=== PATIENT | female | born 1950 | race Caucasian/White ===

== ENCOUNTER 2021-02-09 | Emergency (ER) | payer BC ==
[~2021-02-09] VITALS: Ht 160 cm; Wt 97.7 kg
[2021-02-09] MEDS ORDERED: IV NORMAL SALINE 1000ML BAG 1,000 ML IV ONE (01:15)
[2021-02-09] MEDS ORDERED: KETOROLAC 15 MG/ML VIAL. IVP ONE (01:15)
[2021-02-09] MEDS ORDERED: ORPHENADRINE CITRATE 60 MG/2 ML VIAL. IV ONE (01:15)
--- NOTE | 2021-02-09 01:22 | PHYS DOC ---
Past Medical History Past Medical History: Cancer, Diabetes-Type II Additional Past Medical Histor: Colon, anal, and breast cancer Past Surgical History: Other Additional Past Surgical Histo: breast reduction and liver surgery Smoking Status: Former Smoker Alcohol Use: Occasionally Drug Use: None General Adult EDM: Chief Complaint: MECHANICAL FALL HPI: HPI: Patient is a 71 year old female with past medical history of stage IV colon and anal cancer as well as breast cancer and diabetes on insulin presents today after a fall around 1130. Patient woke up and was having some leg cramps and was using her walker to walk down the hallway when she started to call for her . Patient does states she has a history of leg cramps and believes it may be due to dehydration. Patient lost balance and fell and her walker got in front of her. Patient said fall was directly related to cramps in her legs and some nausea. Patient is now having some left knee pain. Patient denies hitting her head but she does state that she did hit her neck and she is not on any blood thinners. does state that the patient did lose consciousness for about 1 minute in which she was nonresponsive. This happened when he sat her up against the wall. Patient does state that she had a a bowel movement on accident. She does state that this occurred in the emergency department and this is not normal for her. Patient denies any chest pain or shortness of breath. Patient denies any loss of sensation, vision changes or numbness or tingling. Patient states that she is not on any chemotherapy at this point for her cancer. She is following with [facility] and her doctor is apparently trying to get her into a clinical trial at this point. Review of Systems: Review of Systems: Constitutional: Denies fever or chills Eyes: Denies redness or eye pain HENT: Denies nasal congestion or sore throat Respiratory: Denies cough or shortness of breath Cardiovascular: Denies chest pain or palpitations GI: Denies abdominal pain, nausea, or vomiting : Denies dysuria or hematuria Musculoskeletal: Reports neck pain and left knee pain Integument: Denies rash or skin lesions Neurologic: Denies headache, focal weakness or sensory changes Complete systems were reviewed and found to be within normal limits, except as documented in this note. Heart Score: C/O Chest Pain: No Allergies: Allergies: Allergies Coded Allergies Type Severity Reaction Last Updated Verified No Known Drug Allergies 02/09/21 No Physical Exam: PE: Constitutional: Well developed, well nourished, no acute distress, non-toxic appearance HENT: Normocephalic, atraumatic Eyes: PERRL, EOMI, conjunctiva normal, no discharge Neck: Limited range of motion due to pain, no midline C-spine tenderness, no paraspinal tenderness, anterior neck pain noted Lungs & Thorax: No respiratory distress, equal chest rise and fall Abdomen: Soft, no tenderness; pelvis stable and nontender Skin: Warm, dry, no erythema, no rash abrasions noted on the forehead, chin, right hand, left knee Back: No tenderness, no CVA tenderness Extremities: left knee tenderness, ROM intact, negative anterior drawer sign, no edema Neurologic: Alert and oriented X 3, normal motor function, normal sensory function, no focal deficits noted, cranial nerves II through XII intact to testing Psychologic: Affect normal, judgment normal Current Patient Data: Vital Signs: Vital Signs Date Time Temp Pulse Resp B/P (MAP) Pulse Ox O2 Delivery O2 Flow Rate FiO2 02/09/21 00:00 98.6 66 18 136/66 (89) 99 Room Air 98.6 Radiology/Procedures: Radiology/Procedures: PROCEDURE: CT HEAD AND CERVICAL SPINE [facility] Compliance Statement: One or more of the following individualized dose reduction techniques were utilized for this examination: 1. Automated exposure control 2. Adjustment of the mA and/or kV according to patient size 3. Use of iterative reconstruction technique CT head and cervical spine without contrast 02/09/2021 1:26 AM INDICATION: Pain status post fall COMPARISON: None available TECHNIQUE: Multiple axial CT images of the head were obtained from skull base through the vertex without intravenous contrast. Multiple axial CT images of the cervical spine were obtained without intravenous contrast. Coronal and sagittal reformats are provided. FINDINGS: Head: Ventricles, sulci and basal cisterns are within normal limits. Density calcification identified within the globus pallidus and thalami. There is no hydrocephalus. Parmar-white matter differentiation is normal. There is no acute intracranial hemorrhage. There is no mass, mass effect or midline shift. Calcifications identified within the dentate nuclei. Visualized portions of the orbits are normal. Paranasal sinuses are well aerated. Mastoid air cells are well aerated. Scalp and calvaria are normal. Cervical spine: Alignment of the cervical spine is normal. Skull base is intact. Craniocervical junction is normal in appearance. Atlantoaxial articulation is normal. Vertebral body heights are maintained without evidence for acute fracture. There is calcification of the transverse ligament. Bridging anterior marginal osteophytosis noted with clefts identified at C3-C4 and C6-C7. At C3-C4, there is a central disc extrusion with mild facet arthropathy and mild uncovertebral joint disease resulting in moderate left and mild right neural foraminal stenosis and moderate spinal canal stenosis with at least mild deformity of the cord. Transverse foramen are intact. There is no prevertebral soft tissue swelling. Inferior right thyroid nodule measures 0.6 cm. Visualized portions of the lung apices are normal without evide nce for suspicious pulmonary nodule or infiltrate. IMPRESSION: 1. No acute intracranial hemorrhage. Dense calcifications identified within globus pallidus, thalami and dentate nuclei. Findings could reflect senescent changes versus changes associated with metabolic disorders such as hyperparathyroidism. 2. No acute fracture or malalignment of the cervical spine. [id number] cervical spondylosis. Findings result in moderate spinal canal stenosis at C3- C4. Electronically signed by: Rj Damon MD (02/09/2021 2:08 AM) [facility] PROCEDURE: KNEE LEFT 3V XR KNEE _3 VIEWS_LT 02/09/2021 1:26 AM INDICATION: Status post fall COMPARISON: None available. TECHNIQUE: 3 views of the left knee are provided. FINDINGS/ IMPRESSION: No significant knee joint effusion. There is no skin thickening along the suprapatellar region. Patellar enthesopathy noted. There is no acute fracture or dislocation. Mild femorotibial osteoarthrosis. Bone mineralization is within normal limits. Regional soft tissues are within normal limits. There is no soft tissue gas or osseous erosion. No radiopaque foreign body. Electronically signed by: Rj Damon MD (02/09/2021 2:09 AM) [facility] DICTATED and SIGNED BY: RJ DAMON MD DATE: 02/09/21 [id number] 0 Course & Med Decision Making: Course & Med Decision Making 71-year-old female patient with past medical history of stage IV colon and anal cancer and insulin-dependent diabetic presents today after mechanical fall that happened at 1130. Patient thinks the fall was due to the leg cramps which she a lso thinks is due to being slightly dehydrated. Patient does have some anterior neck tenderness and did have an episode of loss of consciousness that lasted about 1 minute according to the . Patient had no focal neurological deficits. CT head/cervical spine showed no acute abnormalities. Patient did have low potassium and I suspect that may be the cause for her muscle cramps. We will replete her potassium today orally and encourage a diet higher in potassium with adequate hydration. Patient also received intravenous fluids and medication to control her pain. Patient will be discharged with muscle relaxers as the patient already has opiates at home from her cancer treatment. Patient stable for discharge with outpatient follow-up with PCP. Discussed findings and plan with patient and spouse, who acknowledge understanding and agreement. Hemant Disclaimer: Hemant Disclaimer: This electronic medical record was generated, in whole or in part, using a voice recognition dictation system. Departure Departure Impression: Primary Impression: Fall Qualified Codes: W19.XXXA - Unspecified fall, initial encounter Additional Impressions: Contusion of neck Qualified Codes: S10.93XA - Contusion of unspecified part of neck, initial encounter Knee contusion Qualified Codes: S80.02XA - Contusion of left knee, initial encounter Hypokalemia Disposition: 01 HOME / SELF CARE / HOMELESS Condition: STABLE Patient Instructions: Contusion, [id number], Fall Prevention and Home Safety, [id number], Hypokalemia, Knee Wraps (Elastic Bandage) and RICE, Potassium Content of Foods Additional Instructions: Increase fluid hydration. ICE area of discomfort 20 min on then leave off next 20 mins. Repeat several times daily as needed for pain or discomfort. May use over the counter Tylenol and/or Ibuprofen and/or previously prescribed medications for pain or discomfort. Scripts Orphenadrine Citrate (ORPHENADRINE CITRATE) 100 Mg Tablet.er 100 MG PO BID PRN for MUSCLE PAIN, #14 TAB Prov: KIMMY SMITH DO 02/09/21 KIMMY SMITH DO Feb 09, 2021 01:22
--- NOTE | 2021-02-09 02:11 | RAD ---
[facility] Compliance Statement: One or more of the following individualized dose reduction techniques were utilized for this examinat ion: 1. Automated exposure control 2. Adjustment of the mA and/or kV according to patient size 3. Use of iterative reconstruction technique CT head and cervical spine without contrast 02/09/2021 1:26 AM INDICATION: Pain status post fall COMPARISON: None available TECHNIQUE: Multiple axial CT images of the head were obtained from skull base through the vertex with out intravenous contrast. Multiple axial CT images of the cervical spine were obtained without intrav enous contrast. Coronal and sagittal reformats are provided. FINDINGS: Head: Ventricles, sulci and basal cisterns are within normal limits. Density calcification identified withi n the globus pallidus and thalami. There is no hydrocephalus. Parmar-white matter differentiation is no rmal. There is no acute intracranial hemorrhage. There is no mass, mass effect or midline shift. Calc ifications identified within the dentate nuclei. Visualized portions of the orbits are normal. Paranasal sinuses are well aerated. Mastoid air cells a re well aerated. Scalp and calvaria are normal. Cervical spine: Alignment of the cervical spine is normal. Skull base is intact. Craniocervical junction is normal in appearance. Atlantoaxial articulation is normal. Vertebral body heights are maintained without evidence for acute fracture. There is calcification of the transverse ligament. Bridging anterior marginal osteophytosis noted with clefts identified at C3- C4 and C6-C7. At C3-C4, there is a central disc extrusion with mild facet arthropathy and mild uncovertebral joint disease resulting in moderate left and mild right neural foraminal stenosis and moderate spinal canal stenosis with at least mild deformity of the cord. Transverse foramen are intact. There is no prevertebral soft tissue swelling. Inferior right thyroid nodule measures 0.6 cm. Visuali zed portions of the lung apices are normal without evidence for suspicious pulmonary nodule or infilt rate. IMPRESSION: 1. No acute intracranial hemorrhage. Dense calcifications identified within globus pallidus, thalami and dentate nuclei. Findings could reflect senescent changes versus changes associated with metabolic disorders such as hyperparathyroidism. 2. No acute fracture or malalignment of the cervical spine. [id number] cervical spondylosis. Fi ndings result in moderate spinal canal stenosis at C3-C4. Electronically signed by: Maki Damon MD (02/09/2021 2:08 AM) [facility]
--- NOTE | 2021-02-09 02:12 | RAD ---
XR KNEE _3 VIEWS_LT 02/09/2021 1:26 AM INDICATION: Status post fall COMPARISON: None available. TECHNIQUE: 3 views of the left knee are provided. FINDINGS/ IMPRESSION: No significant knee joint effusion. There is no skin thickening along the suprapatellar region. Thomas lar enthesopathy noted. There is no acute fracture or dislocation. Mild femorotibial osteoarthrosis. Bone mineralization is within normal limits. Regional soft tissues are within normal limits. There is no soft tissue gas or osseous erosion. No radiopaque foreign body. Electronically signed by: Maki Damon MD (02/09/2021 2:09 AM) [facility]
[2021-02-09 02:18] LABS: BASO % 1 % (0-3); EOS % 1 % (0-3); HEMATOCRIT 31.8 % (36.0-47.0); HEMOGLOBIN 10.6 g/dL (12.0-15.5); LYMPH # 0.7 x10^3/uL (1.0-4.8); LYMPH % 10 % (24-48); MEAN CORPUSCULAR HEMOGLOBIN 28 pg (25-35); MEAN CORPUSCULAR HGB CONC 34 g/dL (31-37); MEAN CORPUSCULAR VOLUME 84 fL (79-100); MONO # 0.6 x10^3/uL (0.0-1.1); MONO % 8 % (0-9); NEUT # 6.3 x10^3/uL (1.8-7.7); NEUT % 81 % (31-73); PLATELET COUNT 235 x10^3/uL (140-400); RED BLOOD COUNT 3.79 x10^6/uL (3.50-5.40); RED CELL DISTRIBUTION WIDTH 15.3 % (11.5-14.5); WHITE BLOOD COUNT 7.8 x10^3/uL (4.0-11.0)
[2021-02-09 02:28] LABS: CALCIUM 9.7 mg/dL (8.5-10.1); CREATININE 0.7 mg/dL (0.6-1.0); POTASSIUM 3.1 mmol/L (3.5-5.1)
[2021-02-09 02:33] LABS: ALBUMIN 3.1 g/dL (3.4-5.0); ALBUMIN/GLOBULIN RATIO 0.8 (1.0-1.7); MAGNESIUM 1.8 mg/dL (1.8-2.4); TOTAL BILIRUBIN 0.4 mg/dL (0.2-1.0); TOTAL PROTEIN 7.2 g/dL (6.4-8.2)
[2021-02-09] MEDS ORDERED: ORPH100T PO (02:40)
[2021-02-09] MEDS ORDERED: POTASSIUM CHLORIDE 20 MEQ TABLET.ER. PO ONE (02:45)
[2021-02-09 03:55] VITALS: BP 168/78
== END 2021-02-09 04:15 | disposition home or self-care (01) ==
LOC: ER
DX: S10.93XA Contusion of unspecified part of neck, initial encounter (principal); S80.02XA Contusion of left knee, initial encounter; E87.6 Hypokalemia; E11.9 Type 2 diabetes mellitus without complications; Z87.891 Personal history of nicotine dependence; W18.39XA Other fall on same level, initial encounter; Y93.89 Activity, other specified; Y92.89 Other specified places as the place of occurrence of the external cause; Y99.8 Other external cause status
CPT/HCPCS: 36415; 70450; 72125; 73562; 80053; 83735; 85025; 96361; 96374; 96375; 99285; J1885; J2360; J7030